=== PATIENT | female | born 1940 | race Caucasian/White ===

== ENCOUNTER → 2016-09-26 | Outpatient (CLI) | payer OTHER ==
[~2016-09-26] MED LIST: ANT25 PO; ASCO500T16 PO; ASPI81TA21 PO; ATOR-14 PO; CHOL100010 PO; CLTP PO; DICL-201 PO; FURO-85 PO; GLUC10007 PO; LEVO125T72 PO; LISI-729 PO; MULT-506 PO; NITR100C4 PO; OXYB10TA PO; ROPI1TAB PO; SUCR1TAB29 PO; ZNTT/150 PO
[2016-09-26 13:27] LABS: BASO % 0.3 %; BASO ABS # 0.02 K/uL (0-0.2); COMPLETE YES; EOS % 1.3 %; HEMATOCRIT 46.2 % (37-47); IG% 0.1 %; LYMPH % 27.1 %; LYMPH ABS # 1.84 K/uL (1.2-3.4); MEAN CELL VOLUME 92.4 fL (80-100); MEAN CORPUSCULAR HEMOGLOBIN 31.2 pg (25-34); MEAN CORPUSCULAR HGB CONC 33.8 g/dl (32-36); MEAN PLATELET VOLUME 10.8 fL (7.4-10.4); MONO % 6.3 %; NEUT % 64.9 %; PLATELET COUNT 168 K/uL (130-400); WHITE BLOOD COUNT 6.79 K/uL (4.8-10.8)
== END | disposition home or self-care (01) ==
LOC: C.LABPBG 10:18
PROVIDERS: ATTEND Neuromusculoskeletal Medicine & OMM
DX: H10.9 Unspecified conjunctivitis (principal)

== ENCOUNTER → 2016-10-08 | Outpatient (CLI) | payer OTHER ==
[2016-10-08 13:13] LABS: CHOLESTEROL/HDL RATIO 2.9; THYROID STIMULATING HORMONE 1.12 uIu/ml (0.300-4.500)
== END | disposition home or self-care (01) ==
LOC: C.LABPBG 09:22
PROVIDERS: ATTEND Family Medicine
DX: E78.5 Hyperlipidemia, unspecified (principal); E03.9 Hypothyroidism, unspecified; B37.2 Candidiasis of skin and nail

== ENCOUNTER → 2017-03-27 | Outpatient (CLI) | payer OTHER ==
[2017-03-27 12:28] LABS: ALT/SGPT 24 U/L (12-78); BLOOD UREA NITROGEN 18 mg/dl (7-18); BUN/CREATININE RATIO 21.5 (10-20); CALCIUM 8.6 mg/dl (8.5-10.1); CARBON DIOXIDE 29 mmol/L (21-32); CHLORIDE 109 mmol/L (98-107); CREATININE 0.83 mg/dl (0.60-1.20); GLUCOSE 90 mg/dl (70-99); POTASSIUM 4.2 mmol/L (3.5-5.1); SODIUM 143 mmol/L (136-145)
[2017-03-27 12:38] LABS: CHOLESTEROL 143 mg/dl (0-200); HDL CHOLESTEROL 48 mg/dl; LDL CHOLESTEROL CALCULATED 76 mg/dl; TRIGLYCERIDES 93 mg/dl (0-150); VERY LOW DENSITY LIPOPROT CALC 19 mg/dl
== END | disposition home or self-care (01) ==
LOC: C.LABPBG 08:11
PROVIDERS: ATTEND Family Medicine
DX: I10 Essential (primary) hypertension (principal); E03.9 Hypothyroidism, unspecified; E78.5 Hyperlipidemia, unspecified

== ENCOUNTER → 2017-10-13 | Outpatient (CLI) | payer OTHER ==
[~2017-10-13] MED LIST changes: +ASPI-319 PO; -ASPI81TA21 PO; +RANI150T85 PO; -ZNTT/150 PO
[2017-10-13 13:34] LABS: ALT/SGPT 27 U/L (12-78); BLOOD UREA NITROGEN 14 mg/dl (7-18); CARBON DIOXIDE 28 mmol/L (21-32); CHOLESTEROL 138 mg/dl (0-200); GLUCOSE 92 mg/dl (70-99); POTASSIUM 4.2 mmol/L (3.5-5.1); SODIUM 139 mmol/L (136-145)
[2017-10-13 13:45] LABS: LDL CHOLESTEROL CALCULATED 68 mg/dl
[2017-10-13 13:55] LABS: HEMOGLOBIN A1C 5.2 % (4.5-5.6)
== END | disposition home or self-care (01) ==
LOC: C.LABPBG 09:57
PROVIDERS: ATTEND Family Medicine
DX: I10 Essential (primary) hypertension (principal); E03.9 Hypothyroidism, unspecified; E78.5 Hyperlipidemia, unspecified

== ENCOUNTER 2019-12-04 17:38 | Inpatient (IN) ==
[2019-12-04] MEDS ORDERED: KETOROLAC TROMETHAMINE 15 MG/ML VIAL IV STA (17:50)
[2019-12-04] MEDS ORDERED: ONDANSETRON INJ 2 MG/ML 2 ML VIAL IV STA (17:50)
[2019-12-04] MEDS ORDERED: SODIUM CHLORIDE 0.9% 1000ML 500 ML IV ONE (18:00)
--- NOTE | 2019-12-04 18:04 | Emergency Department Note ---
History of Present Illness General Chief Complaint: Abdominal Pain Stated Complaint: RLQ PAIN, FEVER/CHILLS Time Seen by Provider: 12/04/19 17:48 History of Present Illness Provider Complaint: abdominal pain Onset (ago): 2 day(s) Pain Consistency: constant Location: RLQ Radiation: none Severity: moderate Maximum Pain Intensity: 1 Current Pain Intensity: 1 Quality: + stabbing and + sharp Relieved By: + nothing Context: no possible food poisoning and no recent antibiotic use Associated Symptoms: + fever (T-max 100.3.), + chills and + dysuria (And polyuria); no hematochezia, no melena and no hematuria Home Medications Home Medications Medication Instructions Recorded Confirmed Type Caltrate 600 plus D 1 tab PO 1200 07/10/18 12/04/19 History cholecalciferol (vitamin D3) 50 2,000 units PO QAM tab 03/22/19 12/04/19 History mcg (2,000 unit) tablet docusate sodium 100 mg tablet 100 mg PO PM tab 03/22/19 12/04/19 History magnesium oxide 500 mg capsule 750 mg PO PM cap 03/22/19 12/04/19 History multivitamin 1 tab PO QAM 03/22/19 12/04/19 History prednisolone acetate 1 % eye 1 drops OP QID ml 03/22/19 12/04/19 History drops,suspension ropinirole 1 mg tablet 1 mg PO QPM #90 tab 05/16/19 12/04/19 Rx atorvastatin [Lipitor] 10 mg PO PM 06/20/19 12/04/19 History montelukast 10 mg PO QAM 06/20/19 12/04/19 History fluconazole 150 mg tablet 150 mg PO Q3D #2 tab 07/25/19 12/04/19 Rx pantoprazole 40 mg tablet,delayed 40 mg PO QAM #90 tab 08/12/19 12/04/19 Rx release levothyroxine 125 mcg tablet 125 mcg PO QAM #90 tab 09/12/19 12/04/19 Rx lisinopril 5 mg tablet 5 mg PO DAILY #90 tab 11/25/19 12/04/19 Rx Rantidine Tabs 150 mg PO HS 12/04/19 12/04/19 History brimonidine [Alphagan P] 1 drp OPHTHALMIC (EYE) DIRECTED 12/04/19 12/04/19 History Allergies Allergy/AdvReac Type Severity Reaction Status Date / Time esomeprazole Allergy Intermediate ITCHY RASH Verified 12/04/19 18:23 dog dander Allergy Mild CONGESTION Verified 12/04/19 18:23 house dust Allergy Mild CONGESTION Verified 12/04/19 18:23 mold Allergy Mild CONGESTION Verified 12/04/19 18:23 mollusks Allergy Mild CONGESTION Verified 12/04/19 18:23 Past Med/Surg History Medical History Acute anterior uveitis of both eyes GETS OCCASIONALLY GERD (gastroesophageal reflux disease) Hiatal hernia Hyperlipidemia Hypertension Hypothyroidism Kidney stones Osteoarthritis Surgical History Brow ptosis (Inactive 06/28/19) s/p bilateral temporal brow lift History of colonoscopy History of cystoscopy History of hysterectomy History of thyroidectomy, total History of tonsillectomy Hx of cholecystectomy (Resolved) Family History Mother Hypertension Myocardial infarction Unknown Colorectal cancer Other No pertinent family history Denies family history of Ovarian cancer Prostate cancer Breast cancer Social History Preferred Language: Peruvian Communication Ability: Effective Visual Impairment: No Limitations Hearing Ability: Use of Hearing Aid Commissioned Security Officer Required: No Beliefs That Will Affect Care: None Current Living Situation: Family current occupational status: retired Feels Safe at Home: Yes Smoking Status: Never smoker Second Hand Exposure: No ; Hx Alcohol Use: Yes Alcohol type: wine Hx Substance Use: No Dental Care, Regularly: No Physical Activity Frequency: Does not Exercise Review of Systems A total of 10 systems reviewed and were otherwise negative Physical Exam Vital Signs: Vital Signs - 24 hr 12/04/19 17:42 12/04/19 19:12 12/04/19 20:53 Temperature 37.2 C Temperature Source Oral Pulse Rate 95 H Pulse Rate [Left F prema] 86 82 Pulse Rhythm Regular Pulse Rhythm [Left Finger] Regular Pulse Strength Normal Pulse Strength [Le ft Finger] Normal Respiratory Rate 16 18 18 Respiratory Effort / Characteristics Non-Labored Non-Labored Sponta neous Respiratory Depth Normal Normal Respiratory Patter n Regular Blood Pressure 157/79 H Blood Pressure [Ri ght Arm] 189/68 H 204/106 H Blood Pressure Neema n 105 Blood Pressure Neema n [Right Arm] 108 138 Blood Pressure Pos ition Sitting Blood Pressure Pos ition [Right Arm] Sitting Lying Pulse Oximetry 96 97 98 Oxygen Delivery Me thod Room Air Room Air Room Air Sepsis Recent Feve r Within 48 Hours No Sepsis Action Take n by Nursing No Action Required Physical Exam: Physical Exam GENERAL: She is oriented to person, place, and time. She appears well-developed and well-nourished. She does not appear distressed. HENT: Exam performed. -Head: Normocephalic and atraumatic. -Right Ear: External ear normal. No mastoid tenderness. -Left Ear: External ear normal. No mastoid tenderness. -Mouth/Throat: The oropharynx is clear and moist. No trismus in the jaw. No dental abscesses or uvula swelling. No oropharyngeal exudate or tonsillar abscesses. EYES: Conjunctivae and EOM are normal. Pupils are equal, round, and reactive to light. Right eye exhibits no discharge. Left eye exhibits no discharge. No scleral icterus. NECK: Normal range of motion. Neck supple. No JVD present. No spinous process tenderness present. No carotid bruit present. No rigidity. No tracheal deviation and normal range of motion present. No Brudzinski's sign and no Kernig's sign noted. CV: Normal rate, regular rhythm, normal heart sounds and intact distal pulses. There is no peripheral edema. Palpable radial pulses bue. PULM/CHEST: Effort normal and breath sounds normal. No respiratory distress. No stridor. She has no wheezes. She has no rales. -Chest Wall: She exhibits no tenderness. ABD: The abdomen is soft. Bowel sounds are normal. She has no distension. No mass is present. Pain on palpation of the right lower quadrant. There is no r ebound, no guarding, no Kitchen's sign. Rovsig negative MUSC/SKEL: Normal range of motion. There is no peripheral edema, tenderness or deformity. LYMPH: No cervical adenopathy. NEURO: She is alert and oriented to person, place, and time. She has normal strength. No cranial nerve deficit or sensory deficit. Coordination and gait normal. GCS eye subscore is 4. GCS verbal subscore is 5. GCS motor subscore is 6. Cerebellar tests wnl. SKIN: Skin is warm and dry. She is not diaphoretic. PSYCH: She has a normal mood and affect. Behavior is normal. Judgment and thought content normal. Course Course 1800: The patient was evaluated in room B3. A complete history and physical exam was performed. 1954: Vital signs stable. Labs show leukocytosis of 16.87. CT shows appendicitis. Discussed case with general surgery Dr. Mckeon who states he will be down to evaluate the patient. Rocephin and Flagyl ordered for the patient. Daughter and patient are made of aware of the findings and were told to remain n.p.o. 2010: Dr. Mckeon called and asked if in-house COVID-19 swab can be done on the patient as he plans on taking the patient to the OR tonight. Administered Medications Discontinued Medications Bupivacaine HCl (Marcaine 0.5% Mpf) Confirm Administered Dose 30 ml .ROUTE .STBar Saint- MED ONE Stop: 12/04/19 21:13 Last Admin: 12/04/19 22:36 Dose: 15 ml Documented by: [id number] Sodium Chloride (Nss 1000ml) 500 mls @ 999 mls/hr IV .Q31M ONE Stop: 12/04/19 18:30 Last Infusion: 12/04/19 18:52 Dose: 0 mls/hr Documented by: [id number] Admin: 12/04/19 18:18 Dose: 999 mls/hr Documented by: [id number] Ceftriaxone Sodium (Rocephin) 1,000 mg in 50 mls @ 100 mls/hr IV NOW STA Stop: 12/04/19 19:57 Last Infusion: 12/04/19 20:52 Dose: 0 mls/hr Documented by: [id number] Admin: 12/04/19 19:57 Dose: 100 mls/hr Documented by: [id number] Metronidazole (Flagyl) 500 mg in 100 mls @ 100 mls/hr IV NOW STA Stop: 12/04/19 20:27 Last Infusion: 12/04/19 20:52 Dose: 0 mls/hr Documented by: [id number] Admin: 12/04/19 19:57 Dose: 100 mls/hr Documented by: [id number] Ioversol (Optiray 320 125ml) 93 ml IV ONCE PRN PRN Reason: Interaction Checking Stop: 12/08/19 18:58 Last Admin: 12/04/19 19:00 Dose: 93 ml Documented by: [id number] Ketorolac Tromethamine (Toradol) 15 mg IV NOW STA Stop: 12/04/19 17:51 Last Admin: 12/04/19 20:56 Dose: Not Given Documented by: [id number] Ondansetron HCl (Zofran) 4 mg IV NOW STA Stop: 12/04/19 17:51 Last Admin: 12/04/19 20:56 Dose: Not Given Documented by: [id number] Ondansetron HCl (Zofran) 4 mg IV ONCE PRN PRN Reason: PACU Use Only-Nausea/Vomiting Stop: 12/05/19 05:22 Last Admin: 12/04/19 23:19 Dose: 4 mg Documented by: [id number] Medical Decision Making Laboratory Data Result diagrams: 12/04/19 18:10 12/04/19 18:10 Lab Results 12/04/19 12/04/19 12/04/19 Range/Units 18:10 18:10 18:10 WBC 16.87 H (4.8-10.8) K/uL RBC 4.90 (4.2-5.4) M/uL Hgb 15.8 (12.0-16.0) g/dL Hct 45.8 (37-47) % MCV 93.5 (80-100) fL MCH 32.2 (25-34) pg MCHC 34.5 (32-36) g/dL RDW Std Deviation 45.5 (36.4-46.3) fL RDW Coeff of Fabienne 13.2 (11.5-14.5) % Plt Count 194 (130-400) K/uL MPV 10.0 (7.4-10.4) fL Immature Gran % (Auto) 0.2 % Neut % (Auto) 82.5 % Lymph % (Auto) 10.5 % [place] % (Auto) 6.6 % Eos % (Auto) 0.1 % Baso % (Auto) 0.1 % Immature Gran # (Auto) 0.04 H (0.00-0.02) K/uL Neut # (Auto) 13.93 H (1.4-6.5) K/uL Lymph # (Auto) 1.77 (1.2-3.4) K/uL [place] # (Auto) 1.11 H (0.11-0.59) K/uL Eos # (Auto) 0.01 (0-0.5) K/uL Baso # (Auto) 0.01 (0-0.2) K/uL PT 10.3 (9.0-12.0) Seconds INR 1.0 (0.9-1.1) APTT 24.0 (21.0-31.0) Seconds PTT Ratio 0.9 Sodium 138 (136-145) mmol/L Potassium 4.0 (3.5-5.1) mmol/L Chloride 106 (98-107) mmol/L Carbon Dioxide 27 (21-32) mmol/L Anion Gap 5.0 (3-11) BUN 14 (7-18) mg/dl Creatinine 0.80 (0.6-1.2) mg/dl Est Cr Clr Drug Dosing 66.8 ml/min Est GFR ( Amer) 80.1 Est GFR (Non-Af Amer) 69.1 BUN/Creatinine Ratio 17.6 (10-20) Glucose 108 H (70-99) mg/dl Lactate (0.4-2.0) mmol/L Calcium 9.0 (8.5-10.1) mg/dl Total Bilirubin 0.9 (0.2-1) mg/dl Direct Bilirubin 0.2 (0-0.2) mg/dl AST 19 (15-37) U/L ALT 32 (12-78) U/L Alkaline Phosphatase 93 (45-117) U/L Total Protein 7.6 (6.4-8.2) gm/dl Albumin 4.2 (3.4-5.0) gm/dl Lipase 109 (73-393) U/L Urine Color Urine Appearance (Clear) Urine pH (4.5-7.5) Ur Specific [place] (1.000-1.030) Urine Protein (Negative) Urine Glucose (UA) (Negative) Urine Ketones (Negative) Urine Blood (Negative) Urine Nitrite (Negative) Urine Bilirubin (Negative) Urine Urobilinogen (Negative) Ur Leukocyte Esterase (Negative) Urine WBC (Auto) (0-5) /hpf Urine RBC (Auto) (0-4) /hpf U Hyaline Cast (Auto) (0-5) /lpf U Epithel Cells (Auto) (0-5) /lpf Urine Bacteria (Auto) (Negative) COVID-19 PCR (Negative) SARS-CoV-2 RNA (RT-PCR) 12/04/19 12/04/19 12/04/19 Range/Units 18:10 18:10 20:15 WBC (4.8-10.8) K/uL RBC (4.2-5.4) M/uL Hgb (12.0-16.0) g/dL Hct (37-47) % MCV (80-100) fL MCH (25-34) pg MCHC (32-36) g/dL RDW Std Deviation (36.4-46.3) fL RDW Coeff of Fabienne (11.5-14.5) % Plt Count (130-400) K/uL MPV (7.4-10.4) fL Immature Gran % (Auto) % Neut % (Auto) % Lymph % (Auto) % [place] % (Auto) % Eos % (Auto) % Baso % (Auto) % Immature Gran # (Auto) (0.00-0.02) K/uL Neut # (Auto) (1.4-6.5) K/uL Lymph # (Auto) (1.2-3.4) K/uL [place] # (Auto) (0.11-0.59) K/uL Eos # (Auto) (0-0.5) K/uL Baso # (Auto) (0-0.2) K/uL PT (9.0-12.0) Seconds INR (0.9-1.1) APTT (21.0-31.0) Seconds PTT Ratio Sodium (136-145) mmol/L Potassium (3.5-5.1) mmol/L Chloride (98-107) mmol/L Carbon Dioxide (21-32) mmol/L Anion Gap (3-11) BUN (7-18) mg/dl Creatinine (0.6-1.2) mg/dl Est Cr Clr Drug Dosing ml/min Est GFR ( Amer) Est GFR (Non-Af Amer) BUN/Creatinine Ratio (10-20) Glucose (70-99) mg/dl Lactate 1.1 (0.4-2.0) mmol/L Calcium (8.5-10.1) mg/dl Total Bilirubin (0.2-1) mg/dl Direct Bilirubin (0-0.2) mg/dl AST (15-37) U/L ALT (12-78) U/L Alkaline Phosphatase (45-117) U/L Total Protein (6.4-8.2) gm/dl Albumin (3.4-5.0) gm/dl Lipase (73-393) U/L Urine Color Yellow Urine Appearance Clear (Clear) Urine pH 8.0 H (4.5-7.5) Ur Specific [place] 1.013 (1.000-1.030) Urine Protein Negative (Negative) Urine Glucose (UA) Negative (Negative) Urine Ketones Trace H (Negative) Urine Blood Negative (Negative) Urine Nitrite Negative (Negative) Urine Bilirubin Negative (Negative) Urine Urobilinogen Negative (Negative) Ur Leukocyte Esterase 2+ H (Negative) Urine WBC (Auto) 10-30 H (0-5) /hpf Urine RBC (Auto) 0-4 (0-4) /hpf U Hyaline Cast (Auto) 1-5 (0-5) /lpf U Epithel Cells (Auto) >30 H (0-5) /lpf Urine Bacteria (Auto) 1+ H (Negative) COVID-19 PCR (Negative) SARS-CoV-2 RNA (RT-PCR) Cancelled 12/04/19 Range/Units 20:15 WBC (4.8-10.8) K/uL RBC (4.2-5.4) M/uL Hgb (12.0-16.0) g/dL Hct (37-47) % MCV (80-100) fL MCH (25-34) pg MCHC (32-36) g/dL RDW Std Deviation (36.4-46.3) fL RDW Coeff of Fabienne (11.5-14.5) % Plt Count (130-400) K/uL MPV (7.4-10.4) fL Immature Gran % (Auto) % Neut % (Auto) % Lymph % (Auto) % [place] % (Auto) % Eos % (Auto) % Baso % (Auto) % Immature Gran # (Auto) (0.00-0.02) K/uL Neut # (Auto) (1.4-6.5) K/uL Lymph # (Auto) (1.2-3.4) K/uL [place] # (Auto) (0.11-0.59) K/uL Eos # (Auto) (0-0.5) K/uL Baso # (Auto) (0-0.2) K/uL PT (9.0-12.0) Seconds INR (0.9-1.1) APTT (21.0-31.0) Seconds PTT Ratio Sodium (136-145) mmol/L Potassium (3.5-5.1) mmol/L Chloride (98-107) mmol/L Carbon Dioxide (21-32) mmol/L Anion Gap (3-11) BUN (7-18) mg/dl Creatinine (0.6-1.2) mg/dl Est Cr Clr Drug Dosing ml/min Est GFR ( Amer) Est GFR (Non-Af Amer) BUN/Creatinine Ratio (10-20) Glucose (70-99) mg/dl Lactate (0.4-2.0) mmol/L Calcium (8.5-10.1) mg/dl Total Bilirubin (0.2-1) mg/dl Direct Bilirubin (0-0.2) mg/dl AST (15-37) U/L ALT (12-78) U/L Alkaline Phosphatase (45-117) U/L Total Protein (6.4-8.2) gm/dl Albumin (3.4-5.0) gm/dl Lipase (73-393) U/L Urine Color Urine Appearance (Clear) Urine pH (4.5-7.5) Ur Specific [place] (1.000-1.030) Urine Protein (Negative) Urine Glucose (UA) (Negative) Urine Ketones (Negative) Urine Blood (Negative) Urine Nitrite (Negative) Urine Bilirubin (Negative) Urine Urobilinogen (Negative) Ur Leukocyte Esterase (Negative) Urine WBC (Auto) (0-5) /hpf Urine RBC (Auto) (0-4) /hpf U Hyaline Cast (Auto) (0-5) /lpf U Epithel Cells (Auto) (0-5) /lpf Urine Bacteria (Auto) (Negative) COVID-19 PCR NEGATIVE (Negative) SARS-CoV-2 RNA (RT-PCR) MDM Narrative 1800: The patient was evaluated in room B3. A complete history and physical exam was performed. 1955: Vital signs stable. Labs show leukocytosis of 16.87. CT shows appendicitis. Discussed case with general surgery Dr. Mckeon who states he will be down to evaluate the patient. Rocephin and Flagyl ordered for the patient. Daughter and patient are made of aware of the findings and were told to remain n.p.o. 2010: Dr. Mckeon called and asked if in-house COVID-19 swab can be done on the patient as he plans on taking the patient to the OR tonight. Impression & Plan Acute appendicitis Discharge Plan Visit Data *Final* Discharge Date/Time: 12/04/19 21:32 Chief Complaint: Abdominal Pain Stated Complaint: RLQ PAIN, FEVER/CHILLS ED Provider: Rajat Mckeon Discharge Problem: Acute appendicitis Patient Disposition: Admitted As Inpatient Discharge Instructions Interventions: ED Discharge Assessment Last Done: 12/04/19 21:32
[2019-12-04 18:21] LABS: Basophils # (auto) 0.01 K/uL (0-0.2); Basophils % (auto) 0.1 %; Eosinophils # (auto) 0.01 K/uL (0-0.5); Eosinophils % (auto) 0.1 %; Hematocrit (blood only) 45.8 % (37-47); Hemoglobin 15.8 g/dL (12.0-16.0); Immature Granulocytes # (auto) 0.04 K/uL (0.00-0.02); Immature Granulocytes % (auto) 0.2 %; Lymphocytes # (auto) 1.77 K/uL (1.2-3.4); Lymphocytes % (auto) 10.5 %; Mean Corpuscular Hemoglobin 32.2 pg (25-34); Mean Corpuscular Hgb Conc 34.5 g/dL (32-36); Mean Corpuscular Volume 93.5 fL (80-100); Monocytes # (auto) 1.11 K/uL (0.11-0.59); Monocytes % (auto) 6.6 %; Neutrophils # (auto) 13.93 K/uL (1.4-6.5); Neutrophils % (auto) 82.5 %; Platelet Count 194 K/uL (130-400); RDW Coefficient of Variation 13.2 % (11.5-14.5); RDW Standard Deviation 45.5 fL (36.4-46.3); White Blood Count 16.87 K/uL (4.8-10.8)
[2019-12-04 18:36] LABS: Appearance Urine Clear (Clear); Bacteria Urine Automated 1+ (Negative); Bilirubin Urine Negative (Negative); Blood Urine Negative (Negative); Color Urine Yellow; Epithelial Cell Urine Auto >30 /lpf (0-5); Glucose Urine UA Negative (Negative); Ketones Urine Trace (Negative); Leukocyte Esterase Urine 2+ (Negative); Nitrite Urine Negative (Negative); Protein Urine Negative (Negative); RBC Urine Automated 0-4 /hpf (0-4); Specific Gravity Urine 1.013 (1.000-1.030); Urobilinogen Urine Negative (Negative)
[2019-12-04 18:38] LABS: Albumin Level 4.2 gm/dl (3.4-5.0); BUN Creatinine Ratio 17.6 (10-20); Creatinine Clr Calc Pharmacy 66.8 ml/min; Est GFR (African American) 80.1; Est GFR (Non-African American) 69.1; Partial Thromboplastin Ratio 0.9; Prothrombin Time 10.3 Seconds (9.0-12.0)
[2019-12-04 18:41] LABS: Bilirubin Direct 0.2 mg/dl (0-0.2); Bilirubin,Total 0.9 mg/dl (0.2-1); Total Protein 7.6 gm/dl (6.4-8.2)
[2019-12-04] MEDS ORDERED: OPTIRAY 320 125ml IV PRN (18:59)
--- NOTE | 2019-12-04 19:24 | CT Scan Report ---
ABDOMEN AND PELVIS CT WITH IV CONTRAST CT DOSE: 1111.22 mGy.cm HISTORY: Acute right lower quadrant abdominal pain rlq pain ro appy TECHNIQUE: Multiaxial CT images of the abdomen and pelvis were performed following the IV administrat ion of 93 cc of Optiray 320, A dose lowering technique was utilized adhering to the principles of [place]. COMPARISON STUDY: CT abdomen and pelvis 10/30/2014. FINDINGS: Mild emphysema. No pneumatosis or pneumoperitoneum. Imaged inferior cardiac chambers are mildly enlar ged. Spleen, pancreas and adrenal glands are unremarkable. Cholecystectomy. Hepatic steatosis. Patenc y of the hepatic and portal veins. Kidneys are unremarkable. There are a few scattered subcentimeter bilateral hypodensities which are too small to characterize however statistically favors cysts. No ob structive uropathy. Mild nonspecific urinary bladder wall thickening which appears somewhat nodular a long the anterior serosal margin. Hysterectomy. No adnexal mass lesions. Extensive calcified plaque o f the abdominal aorta. No aneurysm. No adenopathy. No bowel obstruction. Colonic diverticulosis. The appendix is dilated and fluid-filled, 1.3 cm contai rc 2 radiodense foci measuring up to 9 mm suggestive of appendicoliths. Fluid is noted within the a ppendiceal lumen with a focus of air, possibly reflective of necrosis. Mucosal hyperemia with moderat e periappendiceal stranding. No evidence of fracture or drainable fluid collection. Soft tissues are unremarkable. Bones appear intact. IMPRESSION: 1. Moderate acute appendicitis with appendicolith. No evidence of perforation or drainable fluid cristiana ection. 2. No bowel obstruction. 3. Additional findings as above. ACT 112: Negative or not required by law. The above report was generated using voice recognition software. It may contain grammatical, syntax o r spelling errors. Electronically signed by: Flynn Cadena M.D. 12/04/2019 7:23 PM
[2019-12-04] MEDS ORDERED: cefTRIAXone SODIUM 1,000 MG/50 ML BAG IV STA (19:28)
[2019-12-04] MEDS ORDERED: metroNIDAZOLE 500 MG/100 ML BAG IV STA (19:28)
--- NOTE | 2019-12-04 20:37 | History & Physical Report ---
Date of Service December 04, 2019 Assessment & Plan (1) Acute appendicitis: -will plan on appendectomy tonight -keep npo -hydrate with IVF -administer antibiotics--she has already received rocephin and flagyl -pain meds will be provided -plan was discussed at bedside with pt. and her daughter by myself and Dr. Mike Mckeon-patient with acute abdominal pain and evidence on CAT scan of acute appendicitis with an appendicolith For laparoscopic appendectomy possible open appendectomy she also understands she may have a drain History of Present Illness Primary Care Provider: Akila Monique MD 79 year old female was in her usual state of health until she began experiencing RLQ abdominal pain about 24 hours ago. This occurred while she was gardening so she though she pulled a muscle. The pain initially improved without intervention, but over the ensuing 12-24 hours the pain recurred. She noted the pain is worse with movement and was worse in the car ride to the hospital. She has had fevers and chills as well as loss of apatite, but no N/V. In the ED Ct scan of the abdomen showed findings concerning for acute appendicitis. Her WBC was 16.8 and she was afebrile. At the time of my exam she was in no distress. Allergies Allergy/AdvReac Type Severity Reaction Status Date / Time esomeprazole Allergy Intermediate ITCHY RASH Verified 12/04/19 18:23 dog dander Allergy Mild CONGESTION Verified 12/04/19 18:23 house dust Allergy Mild CONGESTION Verified 12/04/19 18:23 mold Allergy Mild CONGESTION Verified 12/04/19 18:23 mollusks Allergy Mild CONGESTION Verified 12/04/19 18:23 Home Medications Home Medications Medication Instructions Recorded Confirmed Type Caltrate 600 plus D 1 tab PO 1200 07/10/18 12/04/19 History cholecalciferol (vitamin D3) 50 2,000 units PO QAM tab 03/22/19 12/04/19 History mcg (2,000 unit) tablet docusate sodium 100 mg tablet 100 mg PO PM tab 03/22/19 12/04/19 History magnesium oxide 500 mg capsule 750 mg PO PM cap 03/22/19 12/04/19 History multivitamin 1 tab PO QAM 03/22/19 12/04/19 History prednisolone acetate 1 % eye 1 drops OP QID ml 03/22/19 12/04/19 History drops,suspension ropinirole 1 mg tablet 1 mg PO QPM #90 tab 05/16/19 12/04/19 Rx atorvastatin [Lipitor] 10 mg PO PM 06/20/19 12/04/19 History montelukast 10 mg PO QAM 06/20/19 12/04/19 History fluconazole 150 mg tablet 150 mg PO Q3D #2 tab 07/25/19 12/04/19 Rx pantoprazole 40 mg tablet,delayed 40 mg PO QAM #90 tab 08/12/19 12/04/19 Rx release levothyroxine 125 mcg tablet 125 mcg PO QAM #90 tab 09/12/19 12/04/19 Rx lisinopril 5 mg tablet 5 mg PO DAILY #90 tab 11/25/19 12/04/19 Rx Rantidine Tabs 150 mg PO HS 12/04/19 12/04/19 History brimonidine [Alphagan P] 1 drp OPHTHALMIC (EYE) DIRECTED 12/04/19 12/04/19 History Past Med/Surg History Medical History Acute anterior uveitis of both eyes GETS OCCASIONALLY GERD (gastroesophageal reflux disease) Hiatal hernia Hyperlipidemia Hypertension Hypothyroidism Kidney stones Osteoarthritis Surgical History Brow ptosis (Inactive 06/28/19) s/p bilateral temporal brow lift History of colonoscopy History of cystoscopy History of hysterectomy History of thyroidectomy, total History of tonsillectomy Hx of cholecystectomy (Resolved) Family History Mother Hypertension Myocardial infarction Unknown Colorectal cancer Other No pertinent family history Denies family history of Ovarian cancer Prostate cancer Breast cancer Social History Preferred Language: Mohawk Communication Ability: Effective Visual Impairment: No Limitations Hearing Ability: Use of Hearing Aid Healthcare Management Consultant Required: No Beliefs That Will Affect Care: None Current Living Situation: Family current occupational status: retired Feels Safe at Home: Yes Smoking Status: Never smoker Second Hand Exposure: No ; Hx Alcohol Use: Yes Alcohol type: wine Hx Substance Use: No Dental Care, Regularly: No Physical Activity Frequency: Does not Exercise Review of Systems Constitutional: + fever, + chills and + sweats Eyes: no diplopia Ear, Nose, Mouth, Throat: no ear pain Respiratory: no cough and no dyspnea Cardiovascular: no chest pain Gastrointestinal: + abdominal pain; no nausea and no vomiting Genitourinary: no dysuria Musculoskeletal: no back pain Integumentary: no rash Neurologic: no localized weakness Physical Exam Constitutional: well developed and well nourished; no acute distress Eyes: no conjunctival abnormality ENMT: Ears: no hearing impairment Neck: trachea midline Respiratory: normal respiratory effort, lungs clear to auscultation Cardiovascular: Rate/Rhythm: regular rate and regular rhythm Vessels: radial pulses present Gastrointestinal (Abdomen): soft and non-distended. Pain with palpation in RUL. Musculoskeletal: no calf pain Skin: no rashes, warm and dry Neurologic: moves all extremities Psychiatric: A+Ox3, euthymic affect Results & Data Results & Data ([facility]) Vital Signs (Past 12 Hours) Vital Signs Temp Pulse Pulse Resp BP BP Pulse Ox 12/04/19 19:12 86 18 189/68 H 97 12/04/19 17:42 37.2 C 95 H 16 157/79 H 96 PG Care Time/CCT Total # of Minutes Spent Total Time Spent with Patient: Total time spent is greater than 50% in coordination of care (as documented) at patient's floor/unit and/or counseling patient: Coding Level of Care Code 10928 Initial Inpt Care Lvl 3 Diagnoses Acute appendicitis K35.80
[2019-12-04] MEDS ORDERED: BUPIVACAINE 0.5 % 5 MG/1 ML MPF 30ML VIAL ONE (21:12)
[2019-12-04] MEDS ORDERED: ONDANSETRON INJ 2 MG/ML 2 ML VIAL IV PRN (21:22)
[2019-12-04] MEDS ORDERED: ATROPINE SULFATE 0.1 MG/ML 10ML SYR IV PRN (21:22)
[2019-12-04] MEDS ORDERED: ePHEDrine sulfate 50 MG/ML AMP IV PRN (21:22)
[2019-12-04] MEDS ORDERED: PROMETHAZINE HCL 6.25 MG in SODIUM CHLORIDE 0.9% 50 ML IV PRN (21:22)
[2019-12-04] MEDS ORDERED: fentaNYL citrate 100 MCG/2 ML VIAL IV PRN (21:22)
[2019-12-04] MEDS ORDERED: fentaNYL citrate 100 MCG/2 ML VIAL ONE (21:25)
--- NOTE | 2019-12-04 21:34 | Anesthesiology Consultation ---
Date of Service December 04, 2019 Assessment & Plan (1) Encounter for pre-operative examination: Chart Review Chart Review: Acceptable Risk for Surgery and Patient NOT seen in Pre Admission Testing Consults Requested none ASA ASA3 Proposed Anesthesia Anesthesia Type: General Risk / Benefits Reviewed With: PT / POA / Parent / Guardian, Accepts Plan and In formed Consent Obtained History Surgery Operation Date: 12/04/19 21:30 Proposed Procedures p Laparoscopic Appendectomy - Terrance Mckeon MD, FACS Height/Weight Height: 5 ft 6 in Weight: 103 kg Allergies Allergy/AdvReac Type Severity Reaction Status Date / Time esomeprazole Allergy Intermediate ITCHY RASH Verified 12/04/19 18:23 dog dander Allergy Mild CONGESTION Verified 12/04/19 18:23 house dust Allergy Mild CONGESTION Verified 12/04/19 18:23 mold Allergy Mild CONGESTION Verified 12/04/19 18:23 mollusks Allergy Mild CONGESTION Verified 12/04/19 18:23 Medications Home Medications Medication Instructions Recorded Confirmed Last Taken Caltrate 600 plus D 1 tab PO 1200 07/10/18 12/04/19 12/04/19 cholecalciferol (vitamin D3) 50 2,000 units PO QAM tab 03/22/19 12/04/19 mcg (2,000 unit) tablet docusate sodium 100 mg tablet 100 mg PO PM tab 03/22/19 12/04/19 12/03/19 magnesium oxide 500 mg capsule 750 mg PO PM cap 03/22/19 12/04/19 12/03/19 multivitamin 1 tab PO QAM 03/22/19 12/04/19 12/04/19 prednisolone acetate 1 % eye 1 drops OP QID ml 03/22/19 12/04/19 12/04/19 drops,suspension ropinirole 1 mg tablet 1 mg PO QPM #90 tab 05/16/19 12/04/19 12/03/19 atorvastatin [Lipitor] 10 mg PO PM 06/20/19 12/04/19 12/03/19 montelukast 10 mg PO QAM 06/20/19 12/04/19 12/04/19 fluconazole 150 mg tablet 150 mg PO Q3D #2 tab 07/25/19 12/04/19 Unknown pantoprazole 40 mg tablet,delayed 40 mg PO QAM #90 tab 08/12/19 12/04/19 12/04/19 release levothyroxine 125 mcg tablet 125 mcg PO QAM #90 tab 09/12/19 12/04/19 12/04/19 lisinopril 5 mg tablet 5 mg PO DAILY #90 tab 11/25/19 12/04/19 12/04/19 Rantidine Tabs 150 mg PO HS 12/04/19 12/04/19 12/03/19 brimonidine [Alphagan P] 1 drp OPHTHALMIC (EYE) DIRECTED 12/04/19 12/04/19 0 12/04/19 Active Medications Generic Name Dose Route Start Last Admin Trade Name Freq PRN Reason Stop Dose Admin Ioversol 93 ml 12/04/19 18:59 12/04/19 19:00 Optiray 320 125ml IV 12/08/19 18:58 93 ml ONCE PRN Administration Interaction Checking NPO Date Last Intake of Fluids: 12/04/19 Time Last Intake of Fluids: 16:30 Date Last Intake of Solids: 12/04/19 Time Last Intake of Solids: 13:30 Past Medical History Medical History Acute anterior uveitis of both eyes GETS OCCASIONALLY GERD (gastroesophageal reflux disease) Hiatal hernia Hyperlipidemia Hypertension Hypothyroidism Kidney stones Osteoarthritis Exercise / Class Metabolic Activity II 4-5 Yardwork/Stairs/Walk up hill Past Family History Family History Mother Hypertension Myocardial infarction Unknown Colorectal cancer Other No pertinent family history Denies family history of Ovarian cancer Prostate cancer Breast cancer Past Surgical History Surgical History Brow ptosis (Inactive 06/28/19) s/p bilateral temporal brow lift History of colonoscopy History of cystoscopy History of hysterectomy History of thyroidectomy, total History of tonsillectomy Hx of cholecystectomy (Resolved) Past Anesthesia History No Hx of Anesthesia Complications and No Family Hx of Anesthesia Complications History of PONV No Hx of PONV and No Hx of Motion Sickness Social History Smoking Status: Never smoker Hx Alcohol Use: Yes Alcohol type: wine alcohol intake frequency: holidays/special occasions only Hx Substance Use: No substance use type: does not use Physical Exam Vital Signs Last Vital Signs Temp 37.2 C 12/04/19 17:42 Pulse 82 12/04/19 20:53 Resp 18 12/04/19 20:53 BP 204/106 H 12/04/19 20:53 Pulse Ox 98 12/04/19 20:53 Constitutional + obese ENMT Mouth: + edentulous Thyromental Distance: > or= 3.5 Finger Breadths Mallampati Class: II Neck normal visual inspection Respiratory normal respiratory effort Auscultation: lungs clear to auscultation bilaterally Cardiovascular Rate/Rhythm: regular rate and regular rhythm Psychiatric Orientation: alert Testing Laboratory Results 12/04/19 18:10 12/04/19 18:10 PT 10.3 Seconds (9.0-12.0) 12/04/19 18:10 INR 1.0 (0.9-1.1) 12/04/19 18:10 APTT 24.0 Seconds (21.0-31.0) 12/04/19 18:10 Urine Color Yellow 12/04/19 18:10 Urine Appearance Clear (Clear) 12/04/19 18:10 Urine pH 8.0 (4.5-7.5) H 12/04/19 18:10 Ur Specific [place] 1.013 (1.000-1.030) 12/04/19 18:10 Urine Protein Negative (Negative) 12/04/19 18:10 Urine Glucose (UA) Negative (Negative) 12/04/19 18:10 Urine Ketones Trace (Negative) H 12/04/19 18:10 Urine Nitrite Negative (Negative) 12/04/19 18:10 Ur Leukocyte Esterase 2+ (Negative) H 12/04/19 18:10 Urine WBC (Auto) 10-30 /hpf (0-5) H 12/04/19 18:10 Urine RBC (Auto) 0-4 /hpf (0-4) 12/04/19 18:10 U Hyaline Cast (Auto) 1-5 /lpf (0-5) 12/04/19 18:10 U Epithel Cells (Auto) >30 /lpf (0-5) H 12/04/19 18:10 Urine Bacteria (Auto) 1+ (Negative) H 12/04/19 18:10 Electrocardiogram Date: 07/10/18 Findings: + NSR @ +PACs Chest X-Ray Date: 12/04/19 Findings: + NAD
[2019-12-04] MEDS ORDERED: MoRPHine SULFATE PF 1 MG/ML 10 ML AMP/VIAL ONE (22:28)
[2019-12-04] MEDS ORDERED: LIDOCAINE HCL 2% 2 ML VIAL/AMP(20MG/ML) INFIL ONE (22:32)
[2019-12-04] MEDS ORDERED: GLYCOPYRROLATE 0.2 MG/ML VIAL ONE (22:32)
[2019-12-04] MEDS ORDERED: ROCURONIUM BROMIDE 10 MG/ML 5 ML VIAL IV ONE (22:32)
[2019-12-04] MEDS ORDERED: ONDANSETRON INJ 2 MG/ML 2 ML VIAL ONE (22:32)
[2019-12-04] MEDS ORDERED: NEOSTIGMINE METHYLSULFATE 5 MG/5 ML SYR ONE (22:32)
[2019-12-04] MEDS ORDERED: PROPOFOL IV EMULSION 10 MG/ML 20 ML VIAL IV ONE (22:32)
[2019-12-04] MEDS ORDERED: SUCCINYLCHOLINE CHLORIDE 20 MG/ML 10 ML VIAL IV ONE (22:32)
[2019-12-04] MEDS ORDERED: KETOROLAC 30 MG/ML VIAL ONE (22:32)
[2019-12-04] MEDS ORDERED: ACETAMINOPHEN 1,000 MG/100 ML VIAL IV ONE (22:37)
--- NOTE | 2019-12-04 22:37 | Post Operative Brief Note ---
PG Immediate Post Op with CF Date of Surgery December 04, 2019 Pre & Post Diagnosis Operation Date: 12/04/19 21:30 Pre-Op Diagnosis: Acute appendicitis. Post-Op Diagnosis: Acute appendicitis. , gangrenous I identified the patient and participated in the time-out.: Yes Procedure Operation Date: 12/04/19 21:30 Actual Procedures p Laparoscopic Appendectomy - Terrance Mckeon MD, FACS Surgeon Terrance Mckeon MD, FACS Digital Media Director Marcial Morales Estimated Blood Loss 10 Findings Consistent with Post-Op Diagnosis Specimens Specimen Description: A. Appendix. Drains Elizabeth Catheter and Frank-Stephens Drain (15 fr round)
--- NOTE | 2019-12-04 23:02 | Anesthesiology Progress Note ---
Date of Service December 04, 2019 Anesthesia Post Procedure Vital Signs Vital Signs: Temp Pulse Pulse Resp BP BP Pulse Ox 12/04/19 20:53 82 18 204/106 H 98 12/04/19 19:12 86 18 189/68 H 97 12/04/19 17:42 37.2 C 95 H 16 157/79 H 96 Pain Intensity Abdomen: Pain Intensity: 5 Transfer of Care Handoff Completed per policy Notes Mental Status: alert / awake / arousable Patient Amnestic to Procedure: Yes Nausea / Vomiting: adequately controlled Pain: adequately controlled Airway Patency, RR, SpO2: stable & adequate BP & HR: stable & adequate Hydration State: stable & adequate Anesthetic Complications: no major complications apparent
--- NOTE | 2019-12-04 23:47 | Operative Report (OR) ---
DATE OF OPERATION: 12/04/2019 NAME OF OPERATION: Laparoscopic appendectomy. PREOPERATIVE DIAGNOSIS: Acute appendicitis. POSTOPERATIVE DIAGNOSIS: Acute appendicitis with gangrenous appendicitis. STAFF SURGEON: Terrance Mckeon MD. READING SPECIALIST: GILBERTO Colvin ANESTHESIA: General. DESCRIPTION OF PROCEDURE: The patient was brought into the operating room and placed on the operating table in supine position. Elizabeth catheter, pneumatic stockings, and orogastric tube were placed. My assistant corporation counsel helped with prepping, draping, removal of the appendix, and closure of the wounds. A 0.5% plain Marcaine was used to anesthetize all skin and subcutaneous tissue. Incision was made above the umbilicus carrying dissection down to the fascia, placing a Veress needle producing pneumoperitoneum. A 5 mm port placed and then pneumoperitoneum produced. Under visualization, another 5 mm port was placed suprapubically. Then using a 5 mm camera, the 12 mm balloon cannula was placed in the supraumbilical area, then another 5 mm port placed in left lower quadrant. The patient's appendix was gangrenous. It was dissected away from the retroperitoneum. There was an exudate. The base of the appendix was dissected free and then transected using the Endo ALCIDES stapler. There was some murky fluid in the right lower quadrant. The mesoappendix was transected using the Endo ALCIDES stapler. The appendix was placed in an Endobag, then the Endobag removed through the umbilical site. The right lower quadrant was irrigated and aspirated and then a 15 round Frank-Stephens drain placed through the suprapubic 5 mm port site into the right lower quadrant and pelvis, secured using 3-0 nylon suture. At this point, all ports were removed. The fascia at the 12 mm site closed using interrupted 0 PDS suture. Skin reapproximated using 4-0 nylon suture. The patient was transferred to recovery room in stable condition. I attest to the content of the Intraoperative Record and any orders documented therein. Any exceptions are noted below. SHEA
[2019-12-05] MEDS ORDERED: PROMETHAZINE HCL 6.25 MG in SODIUM CHLORIDE 0.9% 50 ML IV PRN (00:36)
[2019-12-05] MEDS ORDERED: MoRPHine SULFATE 2 MG/ML CARP IV PRN ×2 (00:36)
[2019-12-05] MEDS ORDERED: HYDROCODONE/ACETAMOPHEN 5/325MG TAB PO PRN ×2 (00:36)
[2019-12-05] MEDS ORDERED: PIPERACILL/TAZOBAC CONSULT ACTIVE PRN (00:36)
[2019-12-05] MEDS ORDERED: ONDANSETRON INJ 2 MG/ML 2 ML VIAL IV PRN (00:36)
[2019-12-05] MEDS ORDERED: PIPERACILLIN/TAZOBACTAM 4.5 GM in DEXTROSE 5% 100 ML IV ONE (01:00)
--- NOTE | 2019-12-05 01:39 | Hospitalist Consultation ---
Date of Consultation December 05, 2019 Assessment & Plan (1) Acute appendicitis: 79 yo F PMHx HTN, GERD, HLD, hypothyroidism admitted for acute appendicitis. Hospitalist service consulted for HTN and medical management. Acute appendicitis s/p laparoscopic appendectomy: - Care per surgical team. - Continue IV piperacillin/tazobactam. - Continue to monitor CBC qAM. - Morphine prn pain, zofran prn nausea. - Diet tomorrow clear liquids. HTN: - while patient's BP was significantly elevated on arrival, post-op her BP is normotensive. - elevation was likely 2/2 pain and discomfort. - continue home lisinopril 5 mg daily. Hypothyroidism: - continue home levothyroxine 125 mcg daily. HLD: - continue home Lipitor 10 mg daily. GERD: - continue home pantoprazole. Dispo: Med/Surg with Telemetry. For IV Abx. FEN/GI: clear liquid diet starting at Breakfast DVT ppx: pt is immediately post-op. SCD thigh for now. (2) Benign essential hypertension: (3) Hypothyroidism: (4) Hyperlipidemia: (5) Acid reflux disease: Supervising Physician Co-Signing Physician Notes Attending addendum: I have physically seen this patient, have supervised the medical residents activities, and agree with the H&P unless as otherwise noted. Assessment and Plan: Acute appendicitis status post laparoscopic appendectomy- IV Zosyn, morphine and Zofran per primary team. Hypertension- Blood pressure now normotensive after surgery. On lisinopril 5 mg daily at home. Medications will be adjusted as needed this admission. Hyperlipidemia- Continue Lipitor 10 mg daily Hypothyroidism- Continue levothyroxine at 125 mcg daily GERD- Continue pantoprazole Remainder of orders notations noted We will follow along during hospital stay History of Present Illness Reason for Consultation: HTN, medical management Requesting Physician: Dr. Mckeon Attending Physician: Terrance Mckeon MD, FACS History of Present Illness 79 yo F PMHx HTN, GERD, hypothyroidism admitted to surgical service for appendicitis. Hospitalist service consulted for HTN and medication management. Today started having RLQ abdominal pain, nausea, subjective fevers and chills. Pain was crampy in nature, worse with car rides and with walking. Upon arrival to ER had leukocytosis to 16.87 with left shift, UA with LE and bacteria but no nitrites and was a dirty catch, CTAP showed appendicitis. Pt was hypertensive to 200/[address] Mckeon performed laparoscopic appendectomy this evening and found a gangrenous appendix with exudate and murky brown fluid in the abdominal cavity. Appendix was successfully removed and fluid drained. On my interview post-op feels that her abdominal pain and nausea have significantly improved, but she still feels very chilled despite several layers of blankets. Denies CP, SOB, dizziness, visual changes, headaches. Allergies Allergy/AdvReac Type Severity Reaction Status Date / Time esomeprazole Allergy Intermediate ITCHY RASH Verified 12/04/19 18:23 dog dander Allergy Mild CONGESTION Verified 12/04/19 18:23 house dust Allergy Mild CONGESTION Verified 12/04/19 18:23 mold Allergy Mild CONGESTION Verified 12/04/19 18:23 mollusks Allergy Mild CONGESTION Verified 12/04/19 18:23 Home Medications Home Medications Medication Instructions Recorded Confirmed Type Caltrate 600 plus D 1 tab PO 1200 07/10/18 12/04/19 History cholecalciferol (vitamin D3) 50 2,000 units PO QAM tab 03/22/19 12/04/19 History mcg (2,000 unit) tablet docusate sodium 100 mg tablet 100 mg PO PM tab 03/22/19 12/04/19 History magnesium oxide 500 mg capsule 750 mg PO PM cap 03/22/19 12/04/19 History multivitamin 1 tab PO QAM 03/22/19 12/04/19 History prednisolone acetate 1 % eye 1 drops OP QID ml 03/22/19 12/04/19 History drops,suspension ropinirole 1 mg tablet 1 mg PO QPM #90 tab 05/16/19 12/04/19 Rx atorvastatin [Lipitor] 10 mg PO PM 06/20/19 12/04/19 History montelukast 10 mg PO QAM 06/20/19 12/04/19 History fluconazole 150 mg tablet 150 mg PO Q3D #2 tab 07/25/19 12/04/19 Rx pantoprazole 40 mg tablet,delayed 40 mg PO QAM #90 tab 08/12/19 12/04/19 Rx release levothyroxine 125 mcg tablet 125 mcg PO QAM #90 tab 09/12/19 12/04/19 Rx lisinopril 5 mg tablet 5 mg PO DAILY #90 tab 11/25/19 12/04/19 Rx Rantidine Tabs 150 mg PO HS 12/04/19 12/04/19 History brimonidine [Alphagan P] 1 drp OPHTHALMIC (EYE) DIRECTED 12/04/19 12/04/19 History Patient History Medical History Acute anterior uveitis of both eyes GETS OCCASIONALLY GERD (gastroesophageal reflux disease) Hiatal hernia Hyperlipidemia Hypertension Hypothyroidism Kidney stones Osteoarthritis Surgical History Brow ptosis (Inactive 06/28/19) s/p bilateral temporal brow lift History of colonoscopy History of cystoscopy History of hysterectomy History of thyroidectomy, total History of tonsillectomy Hx of cholecystectomy (Resolved) Family History Mother Hypertension Myocardial infarction Unknown Colorectal cancer Other No pertinent family history Denies family history of Ovarian cancer Prostate cancer Breast cancer Social History Preferred Language: Mongolian Communication Ability: Effective Visual Impairment: No Limitations Hearing Ability: Use of Hearing Aid Hospital Staff Pharmacist Required: No Beliefs That Will Affect Care: None Current Living Situation: Spouse current occupational status: retired Feels Safe at Home: Yes Safety Concerns: Feels Safe At This Time Smoking Status: Never smoker Second Hand Exposure: No ; Hx Alcohol Use: No Hx Substance Use: No Dental Care, Regularly: No Physical Activity Frequency: Does not Exercise Review of Systems Constitutional: + chills (feeling very cold in the room despite warm blankets); no fever and no malaise Respiratory: no cough, no dyspnea and no wheezing Cardiovascular: no chest pain, no palpitations and no edema Gastrointestinal: + abdominal pain (minimal, at incision sites, significant improvement since surgery); no nausea (none since surgery), no vomiting, no constipation and no diarrhea/loose stools Genitourinary: no dysuria and no hematuria Physical Exam Constitutional: WD/WN, vitals as above Respiratory: normal respiratory effort, lungs clear to auscultation Cardiovascular: RRR, no murmur, no edema Gastrointestinal (Abdomen): Inspection/Auscultation: normal bowel sounds Percussion/Palpation: + abdomen tender (mild, diffuse) and abdomen soft incision sites clean, dry, intact Skin: no rashes, warm and dry Neurologic: normal speech. Psychiatric: A+Ox3, euthymic affect Results & Data Results & Data ([facility]) Vital Signs (Past 12 Hours) Vital Signs Temp Pulse Pulse Resp BP BP Pulse Ox 12/04/19 23:22 65 19 138/66 92 12/04/19 23:20 66 20 93 12/04/19 23:17 63 18 139/61 94 12/04/19 23:15 67 21 97 12/04/19 23:12 70 20 133/63 94 12/04/19 23:10 36.8 C 71 18 95 12/04/19 23:08 74 20 95 12/04/19 23:07 72 17 134/63 94 12/04/19 23:05 72 19 95 12/04/19 23:02 74 13 129/64 95 12/04/19 23:00 36.8 C 70 18 96 12/04/19 22:59 72 20 95 12/04/19 22:57 36.6 C 73 18 114/61 95 12/04/19 22:50 36.6 C 75 17 121/67 100 12/04/19 20:53 82 18 204/106 H 98 12/04/19 19:12 86 18 189/68 H 97 12/04/19 17:42 37.2 C 95 H 16 157/79 H 96 Resident Activity Tracking Resident Involvement: Resident Care Provided Care Provided: Adult Hospital Medicine
[2019-12-05] MEDS: SODIUM CHLORIDE 0.9% 1000ML 1,000 ML IV SCH ×2 (02:44→16:57)
--- NOTE | 2019-12-05 05:52 | Surgery Progress Note ---
Date of Service December 05, 2019 Assessment & Plan (1) S/P laparoscopic appendectomy: pt with gangrenous appendicitis cont IV atbx 2-3 days adv diet/ activity remove gallardo Results & Data Vital Signs (Past 12 Hours) Vital Signs Temp Pulse Pulse Resp BP BP Pulse Ox 12/05/19 04:21 37.2 C 70 16 115/69 92 12/05/19 02:54 37.2 C 91 H 16 94/60 L 91 12/04/19 23:22 65 19 138/66 92 12/04/19 23:20 66 20 93 12/04/19 23:17 63 18 139/61 94 12/04/19 23:15 67 21 97 12/04/19 23:12 70 20 133/63 94 12/04/19 23:10 36.8 C 71 18 95 12/04/19 23:08 74 20 95 12/04/19 23:07 72 17 134/63 94 12/04/19 23:05 72 19 95 12/04/19 23:02 74 13 129/64 95 12/04/19 23:00 36.8 C 70 18 96 12/04/19 22:59 72 20 95 12/04/19 22:57 36.6 C 73 18 114/61 95 12/04/19 22:50 36.6 C 75 17 121/67 100 12/04/19 20:53 82 18 204/106 H 98 12/04/19 19:12 86 18 189/68 H 97 PG Care Time/CCT Total # of Minutes Spent Total Time Spent with Patient: Total time spent is greater than 50% in coordination of care (as documented) at patient's floor/unit and/or counseling patient: Coding Level of Care Code None Diagnoses S/P laparoscopic appendectomy Z90.49
[2019-12-05 06:03] LABS: Basophils # (auto) 0.01 K/uL (0-0.2); Basophils % (auto) 0.1 %; Hematocrit (blood only) 44.6 % (37-47); Hemoglobin 14.9 g/dL (12.0-16.0); Immature Granulocytes # (auto) 0.06 K/uL (0.00-0.02); Immature Granulocytes % (auto) 0.4 %; Lymphocytes # (auto) 1.49 K/uL (1.2-3.4); Lymphocytes % (auto) 10.3 %; Mean Corpuscular Hemoglobin 31.2 pg (25-34); Mean Corpuscular Hgb Conc 33.4 g/dL (32-36); Mean Corpuscular Volume 93.5 fL (80-100); Mean Platelet Volume 10.1 fL (7.4-10.4); Monocytes % (auto) 5.5 %; Neutrophils # (auto) 12.11 K/uL (1.4-6.5); Neutrophils % (auto) 83.7 %; Platelet Count 129 K/uL (130-400); RDW Coefficient of Variation 13.3 % (11.5-14.5); Red Blood Count 4.77 M/uL (4.2-5.4); White Blood Count 14.47 K/uL (4.8-10.8)
[2019-12-05] MEDS: PIPERACILLIN/TAZOBACTAM 4.5 GM in DEXTROSE 5% 100 ML IV SCH ×3 (06:44→21:00)
[2019-12-05] MEDS: LEVOTHYROXINE SODIUM 125 MCG TABLET PO SCH (06:44)
[2019-12-05] MEDS: ACETAMINOPHEN 325 MG TAB PO PRN ×2 (06:50→23:40)
[2019-12-05 07:11] LABS: Albumin Level 3.3 gm/dl (3.4-5.0); BUN Creatinine Ratio 12.6 (10-20); Calcium 8.3 mg/dl (8.5-10.1); Creatinine Clr Calc Pharmacy 52.4 ml/min; Est GFR (African American) 59.7; Est GFR (Non-African American) 51.5
[2019-12-05 07:12] LABS: Albumin Globulin Ratio 1.1 (0.9-2); Bilirubin,Total 2.4 mg/dl (0.2-1); Globulin 3.1 gm/dl (2.5-4.0); Phosphorus 2.9 mg/dl (2.5-4.9); Total Protein 6.4 gm/dl (6.4-8.2)
--- NOTE | 2019-12-05 07:34 | XRay Report ---
XR chest 1V portable CLINICAL HISTORY: Preoperative evaluation. COMPARISON STUDY: Chest radiograph January 17, 2014. FINDINGS: Lung volumes are normal. Lungs are clear. There is no pneumothorax or pleural effusion. Car diac size is at the upper limits of normal. Mediastinal contours are normal. There is no evidence for pulmonary edema. IMPRESSION: No acute cardiopulmonary findings. ACT 112: Negative or not required by law. Electronically signed by: Guille Macedo M.D. 12/05/2019 7:32 AM
[2019-12-05 07:57] LABS: Potassium 4.2 mmol/L (3.5-5.1)
[2019-12-05] MEDS: HEPARIN SOD 5,000 UNIT/0.5 ML VIAL SQ SCH ×2 (08:35→20:52)
[2019-12-05] MEDS: prednisoLONE acetate 1% OP SUSP 5 ML BTL OP SCH ×4 (08:36→20:51)
[2019-12-05] MEDS: PANTOprazole 40 MG TAB PO SCH (08:37)
[2019-12-05] MEDS: lisinopriL 5 MG TAB PO SCH (08:41)
[2019-12-05] MEDS ORDERED: SODIUM CHLORIDE 0.9% 1000ML 500 ML IV ONE (10:15)
[2019-12-05] MEDS: CALCIUM 600MG + VIT D 400 IU TAB PO SCH (12:18)
--- NOTE | 2019-12-05 12:30 | Electrocardiogram Report ---
Test Reason : Blood Pressure : / mmHG Vent. Rate : 077 BPM Atrial Rate : 077 BPM P-R Int : 190 ms QRS Dur : 090 ms QT Int : 384 ms P-R-T Axes : 039 000 055 degrees QTc Int : 434 ms Normal sinus rhythm possible Anterior infarct (cited on or before 26-FEB-2013) Abnormal ECG When compared with ECG of 10-JUL-2018 09:53, Premature atrial complexes are no longer Present QT has lengthened Confirmed by Luis F Grigsby ([id number]) on 12/05/2019 12:29:59 PM Referred By: REFERRED SELF Confirmed By:Arcenio Grigsby
--- NOTE | 2019-12-05 19:46 | History & Physical Bridge Note ---
Date of Service December 05, 2019 History & Physical Bridge Note I have examined the patient, reviewed the History & Physical and in the interval since the performance of the History & Physical I have noted the following changes of clinical significance: I was contacted by the nursing staff as the patient was having low blood pressures in the 80s systolic. The nurse had first contacted the surgeon who recommended a 500 mL bolus of normal saline and then asked that the hospitalist see the patient. When I saw the patient, she was sitting in her chair and was having some lower abdominal pain, but denied any lightheadedness. She denied chest pain or shortness of breath, denied headache. She denied any vision changes. She denied any nausea. She denies any upper abdominal pain or any previous history of liver problems. I discussed the case with Dr. Mckeon on the phone. Gen: AAOx3, NAD HEENT: Anicteric sclerae, EOMI CV: RRR no mgr nl S1S2 Pulm: CTAB no wcr Abd: +BS soft mild tenderness palpation in the lower abdomen at surgical site without guarding or rebound, ISAAC drain with very minimal serosanguineous drainage, ND no masses or hernias Ext: No edema, 2+ DP pulses Skin: No rashes, warm/dry Neuro: Full strength throughout With elevated LFTs, WBC count elevated at 14 which is improved from previous, platelets mildly low at 129 79-year-old female with a history of HTN, hypothyroidism, GERD, RLS, here with acute gangrenous appendicitis with sepsis, now status post appendectomy emergently. With postoperative hypotension likely related to sepsis Also with elevated LFTs likely also secondary to hypotension/shock liver -Agree with bolus of 500 mL's of normal saline and continued maintenance normal saline at 80 mL's per hour -Surgery has advanced her diet to regular as tolerated which should also increase her solute intake -Blood pressures did improve after bolus -Follow LFTs in the morning-would expect LFTs to improve naturally as blood pressures and sepsis improve -Hold atorvastatin until LFTs return to normal -Continue IV antibiotics -Follow cultures -Will hold lisinopril for the morning
[2019-12-05] MEDS: ROPINIROLE HCL 1 MG TABLET PO SCH (20:51)
[2019-12-05] MEDS: MAGNESIUM OXIDE 400 MG TAB PO SCH (20:51)
[2019-12-05] MEDS ORDERED: ATORVASTATIN 10 MG TAB PO SCH (21:00)
--- NOTE | 2019-12-05 23:13 | Billing Data ---
Date of Service December 05, 2019 Coding Level of Care Code 02062 Inpt Consult Level 3
[2019-12-06] MEDS: SODIUM CHLORIDE 0.9% 1000ML 1,000 ML IV SCH ×2 (04:56→15:56)
[2019-12-06] MEDS: PIPERACILLIN/TAZOBACTAM 4.5 GM in DEXTROSE 5% 100 ML IV SCH ×3 (06:11→22:02)
[2019-12-06] MEDS: LEVOTHYROXINE SODIUM 125 MCG TABLET PO SCH (06:12)
[2019-12-06 07:00] LABS: Basophils # (auto) 0.01 K/uL (0-0.2); Basophils % (auto) 0.1 %; Eosinophils # (auto) 0.03 K/uL (0-0.5); Eosinophils % (auto) 0.2 %; Hematocrit (blood only) 40.1 % (37-47); Hemoglobin 13.2 g/dL (12.0-16.0); Immature Granulocytes # (auto) 0.01 K/uL (0.00-0.02); Immature Granulocytes % (auto) 0.1 %; Lymphocytes # (auto) 1.59 K/uL (1.2-3.4); Lymphocytes % (auto) 12.6 %; Mean Corpuscular Hemoglobin 31.5 pg (25-34); Mean Corpuscular Hgb Conc 32.9 g/dL (32-36); Mean Corpuscular Volume 95.7 fL (80-100); Monocytes # (auto) 0.63 K/uL (0.11-0.59); Neutrophils # (auto) 10.35 K/uL (1.4-6.5); Platelet Count 136 K/uL (130-400); RDW Coefficient of Variation 13.7 % (11.5-14.5); RDW Standard Deviation 47.8 fL (36.4-46.3); Red Blood Count 4.19 M/uL (4.2-5.4); White Blood Count 12.62 K/uL (4.8-10.8)
[2019-12-06 07:37] LABS: Albumin Level 2.7 gm/dl (3.4-5.0); Bilirubin Direct 0.4 mg/dl (0-0.2); Calcium 8.5 mg/dl (8.5-10.1); Creatinine Clr Calc Pharmacy 59.4 ml/min; Est GFR (African American) 69.5; Potassium 3.9 mmol/L (3.5-5.1)
[2019-12-06 07:43] LABS: Bilirubin,Total 1.2 mg/dl (0.2-1); Total Protein 5.7 gm/dl (6.4-8.2)
--- NOTE | 2019-12-06 07:53 | Surgery Progress Note ---
Date of Service December 06, 2019 Assessment & Plan (1) S/P laparoscopic appendectomy: Patient awake and alert she is in the bathroom Her urine output is good He does have some abdominal pain with cloudy serous drainage Her blood pressure has improved She probably needs 1-2 more days in the hospital and then home on oral antibiotics She should ambulate in the hallway Results & Data Vital Signs (Past 12 Hours) Vital Signs Temp Pulse Pulse Resp BP Pulse Ox 12/06/19 07:06 86 12/06/19 05:03 36.7 C 68 18 114/73 95 12/06/19 00:12 37.3 C 100 H 20 110/72 92 12/06/19 00:02 104 H PG Care Time/CCT Total # of Minutes Spent Total Time Spent with Patient: Total time spent is greater than 50% in coordination of care (as documented) at patient's floor/unit and/or counseling patient: Coding Level of Care Code None Diagnoses S/P laparoscopic appendectomy Z90.49
[2019-12-06] MEDS: HEPARIN SOD 5,000 UNIT/0.5 ML VIAL SQ SCH ×2 (08:29→20:37)
[2019-12-06] MEDS: PANTOprazole 40 MG TAB PO SCH (08:29)
[2019-12-06] MEDS: prednisoLONE acetate 1% OP SUSP 5 ML BTL OP SCH ×4 (08:29→20:36)
[2019-12-06] MEDS: CALCIUM 600MG + VIT D 400 IU TAB PO SCH (13:11)
--- NOTE | 2019-12-06 14:53 | Hospitalist Progress Note ---
Date of Service December 06, 2019 Assessment & Plan (1) Acute appendicitis: 79-year-old female with a history of HTN, hypothyroidism, GERD, RLS, here with acute gangrenous appendicitis with sepsis, now status post appendectomy emergently. Hospitalist service consulted for HTN and medical management. Acute appendicitis s/p laparoscopic appendectomy: With postoperative hypotension likely related to sepsis, POA. Blood pressures are now improved after normal saline bolus and maintenance normal saline fluids Also with elevated LFTs likely also secondary to hypotension/shock liver-now improving Leukocytosis continues to improve -DC IV fluids -Continue regular diet -Follow LFTs in the morning-would continue to expect LFTs to improve naturally as blood pressures and sepsis improve -Hold atorvastatin until LFTs return to normal -Continue IV Zosyn -ISAAC drain in place -Follow-up on pathology from surgery -Follow cultures -Continue to hold lisinopril for previous hypotension -Continue Tylenol, hydrocodone, and morphine as needed for pain, promethazine and Zofran as needed for nausea (2) Benign essential hypertension: BP was significantly elevated on arrival due to pain, then had hypotension postoperatively secondary to sepsis, POA Blood pressures improved with holding lisinopril and giving IV fluids -DC IV fluids -Continue to hold lisinopril (3) Hypothyroidism: -check TSH - continue home levothyroxine 125 mcg daily. (4) Hyperlipidemia: Holding statin as above for elevated LFTs (5) Acid reflux disease: Continue PPI daily (6) Restless legs syndrome: Continue ropinirole at bedtime (7) DVT prophylaxis: SCDs, heparin SQ Dispo: Stable for downgrade to medical/surgical floor Admission and Anticipated Discharge Date Admission Date: December 04, 2019 Subjective Patient feeling better today. Had some lower right-sided abdominal pain which is now improved. No bowel movement since hospitalization. No nausea or vomiting. Is tolerating a regular diet today. Is making plenty of urine. No further low blood pressures. Remains afebrile. I discussed her care with the general surgery attending. Telemetry with normal sinus rhythm with rates in the 90s to 100s, PVCs and PACs Review of Systems Review of Systems: All systems reviewed & are unremarkable except as noted in HPI & below Physical Exam Constitutional: WD/WN, vitals as above Eyes: PERRL, conjunctivae normal, anicteric sclerae ENMT: external ear and nose normal, oropharynx normal Neck: trachea midline, no thyromegaly Respiratory: normal respiratory effort, lungs clear to auscultation Cardiovascular: RRR, no murmur, no edema Chest (Breasts): Chest: normal inspection of chest Gastrointestinal (Abdomen): normal bowel sounds, soft, nontender, no hepatosplenomegaly Musculoskeletal: Extremities: extremities normal to inspection; no cyanosis and no clubbing Skin: no rashes, warm and dry Neurologic: moves all extremities and awake; no focal motor deficits Psychiatric: A+Ox3, euthymic affect Lymphatic: no lymphedema Results & Data Results & Data ([facility]) Vital Signs (Past 12 Hours) Vital Signs Temp Pulse Pulse Resp BP BP Pulse Ox 12/06/19 11:51 36.9 C 93 H 18 123/83 90 12/06/19 07:20 36.8 C 83 20 149/87 H 90 12/06/19 07:06 86 12/06/19 05:03 36.7 C 68 18 114/73 95 Laboratory Results 12/06/19 12/06/19 Range/Units 06:38 06:38 WBC 12.62 H (4.8-10.8) K/uL RBC 4.19 L (4.2-5.4) M/uL Hgb 13.2 (12.0-16.0) g/dL Hct 40.1 (37-47) % MCV 95.7 (80-100) fL MCH 31.5 (25-34) pg MCHC 32.9 (32-36) g/dL RDW Std Deviation 47.8 H (36.4-46.3) fL RDW Coeff of Fabienne 13.7 (11.5-14.5) % Plt Count 136 (130-400) K/uL MPV 10.0 (7.4-10.4) fL Immature Gran % (Auto) 0.1 % Neut % (Auto) 82.0 % Lymph % (Auto) 12.6 % [place] % (Auto) 5.0 % Eos % (Auto) 0.2 % Baso % (Auto) 0.1 % Immature Gran # (Auto) 0.01 (0.00-0.02) K/uL Neut # (Auto) 10.35 H (1.4-6.5) K/uL Lymph # (Auto) 1.59 (1.2-3.4) K/uL [place] # (Auto) 0.63 H (0.11-0.59) K/uL Eos # (Auto) 0.03 (0-0.5) K/uL Baso # (Auto) 0.01 (0-0.2) K/uL Sodium 141 (136-145) mmol/L Potassium 3.9 (3.5-5.1) mmol/L Chloride 111 H (98-107) mmol/L Carbon Dioxide 25 (21-32) mmol/L Anion Gap 5.0 (3-11) BUN 15 (7-18) mg/dl Creatinine 0.90 (0.6-1.2) mg/dl Est Cr Clr Drug Dosing 59.4 ml/min Est GFR ( Amer) 69.5 Est GFR (Non-Af Amer) 60.0 BUN/Creatinine Ratio 17.0 (10-20) Glucose 106 H (70-99) mg/dl Calcium 8.5 (8.5-10.1) mg/dl Total Bilirubin 1.2 H (0.2-1) mg/dl Direct Bilirubin 0.4 H D (0-0.2) mg/dl AST 72 H (15-37) U/L ALT 135 H (12-78) U/L Alkaline Phosphatase 100 (45-117) U/L Total Protein 5.7 L (6.4-8.2) gm/dl Albumin 2.7 L (3.4-5.0) gm/dl PG Care Time/CCT Total # of Minutes Spent Total Time Spent with Patient: Total time spent is greater than 50% in coordination of care (as documented) at patient's floor/unit and/or counseling patient: Coding Level of Care Code 47283 Subseq Hosp Care Lvl 2 Diagnoses Acute appendicitis K35.80 Benign essential hypertension I10 Hypothyroidism E03.9 Hyperlipidemia E78.5 Acid reflux disease K21.9 Restless legs syndrome G25.81 DVT prophylaxis Z29.9
[2019-12-06] MEDS: ROPINIROLE HCL 1 MG TABLET PO SCH (20:37)
[2019-12-06] MEDS: MAGNESIUM OXIDE 400 MG TAB PO SCH (20:37)
[2019-12-06] MEDS: ACETAMINOPHEN 325 MG TAB PO PRN (20:40)
[2019-12-07] MEDS: LEVOTHYROXINE SODIUM 125 MCG TABLET PO SCH (05:58)
[2019-12-07] MEDS: PIPERACILLIN/TAZOBACTAM 4.5 GM in DEXTROSE 5% 100 ML IV SCH ×3 (05:58→21:26)
[2019-12-07 07:31] LABS: Basophils # (auto) 0.02 K/uL (0-0.2); Basophils % (auto) 0.2 %; Eosinophils % (auto) 0.9 %; Hematocrit (blood only) 40.8 % (37-47); Hemoglobin 13.7 g/dL (12.0-16.0); Immature Granulocytes # (auto) 0.02 K/uL (0.00-0.02); Immature Granulocytes % (auto) 0.2 %; Lymphocytes # (auto) 1.39 K/uL (1.2-3.4); Lymphocytes % (auto) 12.9 %; Mean Corpuscular Hemoglobin 31.9 pg (25-34); Mean Corpuscular Hgb Conc 33.6 g/dL (32-36); Mean Corpuscular Volume 94.9 fL (80-100); Mean Platelet Volume 10.5 fL (7.4-10.4); Monocytes # (auto) 0.56 K/uL (0.11-0.59); Monocytes % (auto) 5.2 %; Neutrophils # (auto) 8.68 K/uL (1.4-6.5); Neutrophils % (auto) 80.6 %; Platelet Count 178 K/uL (130-400); RDW Coefficient of Variation 13.5 % (11.5-14.5); RDW Standard Deviation 46.5 fL (36.4-46.3); White Blood Count 10.77 K/uL (4.8-10.8)
[2019-12-07 08:07] LABS: Albumin Level 2.9 gm/dl (3.4-5.0); BUN Creatinine Ratio 16.2 (10-20); Bilirubin Direct 0.2 mg/dl (0-0.2); Calcium 8.4 mg/dl (8.5-10.1); Creatinine Clr Calc Pharmacy 73.5 ml/min; Est GFR (African American) 88.1; Magnesium 2.1 mg/dl (1.8-2.4); Potassium 3.8 mmol/L (3.5-5.1)
[2019-12-07 08:09] LABS: Bilirubin,Total 0.8 mg/dl (0.2-1); Thyroid Stimulating Hormone 1.46 uIu/ml (0.300-4.500); Total Protein 6.5 gm/dl (6.4-8.2)
--- NOTE | 2019-12-07 08:40 | Surgery Progress Note ---
Date of Service December 07, 2019 Assessment & Plan (1) S/P laparoscopic appendectomy: doing better today dr- serous getting stronger plan d/c tomorrow if progresses cont IV atbx likely d/c drain prior to d/c Results & Data Vital Signs (Past 12 Hours) Vital Signs Temp Pulse Resp BP BP Pulse Ox 12/07/19 07:23 36.5 C 83 18 146/84 H 94 12/07/19 04:00 36.9 C 68 18 142/83 H 93 12/07/19 00:09 36.8 C 93 H 18 157/77 H 92 PG Care Time/CCT Total # of Minutes Spent Total Time Spent with Patient: Total time spent is greater than 50% in coordination of care (as documented) at patient's floor/unit and/or counseling patient: Coding Level of Care Code None Diagnoses S/P laparoscopic appendectomy Z90.49
[2019-12-07] MEDS: PANTOprazole 40 MG TAB PO SCH (08:57)
[2019-12-07] MEDS: prednisoLONE acetate 1% OP SUSP 5 ML BTL OP SCH ×4 (08:57→20:27)
[2019-12-07] MEDS: HEPARIN SOD 5,000 UNIT/0.5 ML VIAL SQ SCH ×2 (08:57→20:26)
[2019-12-07] MEDS ORDERED: FUROSEMIDE 20 MG in SYRINGE 0 ML IV ONE (10:13)
[2019-12-07] MEDS: lisinopriL 5 MG TAB PO SCH (10:47)
[2019-12-07] MEDS: CALCIUM 600MG + VIT D 400 IU TAB PO SCH (13:07)
--- NOTE | 2019-12-07 15:17 | Hospitalist Progress Note ---
Date of Service December 07, 2019 Assessment & Plan (1) Acute appendicitis: This pt is an 79-year-old female with a history of HTN, hypothyroidism, GERD, RLS, here with acute gangrenous appendicitis with sepsis, now status post appendectomy emergently. Hospitalist service consulted for HTN and medical management. Acute appendicitis s/p laparoscopic appendectomy: With postoperative hypotension likely related to sepsis, POA. Blood pressures are now improved and actually now elevated after normal saline bolus and maintenance normal saline fluids Also with elevated LFTs likely also secondary to hypotension/shock liver-now improving/resolved Leukocytosis now resolved -Volume overloaded today--> give lasix 20mg IV x 1 -Continue regular diet -Follow LFTs in the morning-almost completely normalized -continue to hold atorvastatin until LFTs return to normal -Continue IV Zosyn -ISAAC drain in place -pathology from surgery no malignancy but with acute suppurative appendicitis -Follow cultures-no growth -restart lisinopril -Continue Tylenol, hydrocodone, and morphine as needed for pain, promethazine and Zofran as needed for nausea -bowel regimen for constipation (2) Benign essential hypertension: BP was significantly elevated on arrival due to pain, then had hypotension postoperatively secondary to sepsis, POA Blood pressures improved with holding lisinopril and giving IV fluids Now elevated BPs -restart lisinopril -give IV lasix x 1 -check BMP in AM (3) Hypothyroidism: -check TSH - continue home levothyroxine 125 mcg daily. (4) Hyperlipidemia: Holding statin as above for elevated LFTs (5) Acid reflux disease: Continue PPI daily (6) Restless legs syndrome: Continue ropinirole at bedtime (7) DVT prophylaxis: SCDs, heparin SQ Dispo: continue dstay but likely to dc tomorrow as per Surgery Will continue to follow for volume overload Admission and Anticipated Discharge Date Admission Date: December 04, 2019 Subjective Pt notes swollen legs and is a little SOB with exertion with walking halls today. Is eating and dirnking, no BM yet but passing a lot of flatus. No N/V. Denies CP or OSB Review of Systems Review of Systems: All systems reviewed & are unremarkable except as noted in HPI & below Physical Exam Constitutional: WD/WN, vitals as above Eyes: + anicteric sclerae ENMT: external ear and nose normal, oropharynx normal Neck: trachea midline, no thyromegaly Respiratory: normal respiratory effort, lungs clear to auscultation Cardiovascular: Rate/Rhythm: regular rate and regular rhythm Extremities: + edema (1+ edema legs bilat) Chest (Breasts): Chest: normal inspection of chest Gastrointestinal (Abdomen): Inspection/Auscultation: + abdomen abnormal to inspection (incisions with dressings in place, ISAAC drain with serosang drainage) Percussion/Palpation: + abdomen tender (mild at incision sites without guarding) and abdomen soft; no guarding Musculoskeletal: Extremities: no cyanosis and no clubbing Skin: no rashes, warm and dry Neurologic: moves all extremities and awake; no focal motor deficits Psychiatric: A+Ox3, euthymic affect Lymphatic: no lymphedema Results & Data Results & Data ([facility]) Vital Signs (Past 12 Hours) Vital Signs Temp Pulse Resp BP BP Pulse Ox 12/07/19 07:23 36.5 C 83 18 146/84 H 94 12/07/19 04:00 36.9 C 68 18 142/83 H 93 Laboratory Results 12/07/19 12/07/19 Range/Units 06:45 06:45 WBC 10.77 (4.8-10.8) K/uL RBC 4.30 (4.2-5.4) M/uL Hgb 13.7 (12.0-16.0) g/dL Hct 40.8 (37-47) % MCV 94.9 (80-100) fL MCH 31.9 (25-34) pg MCHC 33.6 (32-36) g/dL RDW Std Deviation 46.5 H (36.4-46.3) fL RDW Coeff of Fabienne 13.5 (11.5-14.5) % Plt Count 178 (130-400) K/uL MPV 10.5 H (7.4-10.4) fL Immature Gran % (Auto) 0.2 % Neut % (Auto) 80.6 % Lymph % (Auto) 12.9 % [place] % (Auto) 5.2 % Eos % (Auto) 0.9 % Baso % (Auto) 0.2 % Immature Gran # (Auto) 0.02 (0.00-0.02) K/uL Neut # (Auto) 8.68 H (1.4-6.5) K/uL Lymph # (Auto) 1.39 (1.2-3.4) K/uL [place] # (Auto) 0.56 (0.11-0.59) K/uL Eos # (Auto) 0.10 (0-0.5) K/uL Baso # (Auto) 0.02 (0-0.2) K/uL Sodium 140 (136-145) mmol/L Potassium 3.8 (3.5-5.1) mmol/L Chloride 109 H (98-107) mmol/L Carbon Dioxide 24 (21-32) mmol/L Anion Gap 7.0 (3-11) BUN 12 (7-18) mg/dl Creatinine 0.74 (0.6-1.2) mg/dl Est Cr Clr Drug Dosing 73.5 ml/min Est GFR ( Amer) 88.1 Est GFR (Non-Af Amer) 76.0 BUN/Creatinine Ratio 16.2 (10-20) Glucose 101 H (70-99) mg/dl Calcium 8.4 L (8.5-10.1) mg/dl Magnesium 2.1 (1.8-2.4) mg/dl Total Bilirubin 0.8 (0.2-1) mg/dl Direct Bilirubin 0.2 (0-0.2) mg/dl AST 32 (15-37) U/L ALT 95 H (12-78) U/L Alkaline Phosphatase 100 (45-117) U/L Total Protein 6.5 (6.4-8.2) gm/dl Albumin 2.9 L (3.4-5.0) gm/dl TSH 1.460 (0.300-4.500) uIu/ml PG Care Time/CCT Total # of Minutes Spent Total Time Spent with Patient: Total time spent is greater than 50% in coordination of care (as documented) at patient's floor/unit and/or counseling patient: Coding Level of Care Code 14720 Subseq Hosp Care Lvl 2 Diagnoses Acute appendicitis K35.80 Benign essential hypertension I10 Hypothyroidism E03.9 Hyperlipidemia E78.5 Acid reflux disease K21.9 Restless legs syndrome G25.81 DVT prophylaxis Z29.9
[2019-12-07] MEDS: ACETAMINOPHEN 325 MG TAB PO PRN ×2 (17:05→21:26)
[2019-12-07] MEDS: MAGNESIUM OXIDE 400 MG TAB PO SCH (20:27)
[2019-12-07] MEDS: ROPINIROLE HCL 1 MG TABLET PO SCH (20:28)
[2019-12-08] MEDS: LEVOTHYROXINE SODIUM 125 MCG TABLET PO SCH (05:47)
[2019-12-08] MEDS: PIPERACILLIN/TAZOBACTAM 4.5 GM in DEXTROSE 5% 100 ML IV SCH (05:47)
[2019-12-08 05:55] LABS: Basophils # (auto) 0.02 K/uL (0-0.2); Basophils % (auto) 0.3 %; Eosinophils # (auto) 0.18 K/uL (0-0.5); Eosinophils % (auto) 2.3 %; Hematocrit (blood only) 40.4 % (37-47); Hemoglobin 13.4 g/dL (12.0-16.0); Immature Granulocytes # (auto) 0.02 K/uL (0.00-0.02); Immature Granulocytes % (auto) 0.3 %; Lymphocytes # (auto) 1.84 K/uL (1.2-3.4); Lymphocytes % (auto) 23.4 %; Mean Corpuscular Hemoglobin 31.1 pg (25-34); Mean Corpuscular Hgb Conc 33.2 g/dL (32-36); Mean Corpuscular Volume 93.7 fL (80-100); Mean Platelet Volume 10.1 fL (7.4-10.4); Monocytes # (auto) 0.56 K/uL (0.11-0.59); Monocytes % (auto) 7.1 %; Neutrophils # (auto) 5.25 K/uL (1.4-6.5); Neutrophils % (auto) 66.6 %; Platelet Count 187 K/uL (130-400); RDW Coefficient of Variation 13.2 % (11.5-14.5); RDW Standard Deviation 45.9 fL (36.4-46.3); Red Blood Count 4.31 M/uL (4.2-5.4); White Blood Count 7.87 K/uL (4.8-10.8)
[2019-12-08 06:26] LABS: Albumin Level 2.5 gm/dl (3.4-5.0); BUN Creatinine Ratio 15.3 (10-20); Calcium 8.7 mg/dl (8.5-10.1); Creatinine Clr Calc Pharmacy 70.6 ml/min; Est GFR (African American) 83.9; Est GFR (Non-African American) 72.4; Potassium 3.7 mmol/L (3.5-5.1)
[2019-12-08 06:28] LABS: Albumin Globulin Ratio 0.8 (0.9-2); Bilirubin,Total 0.5 mg/dl (0.2-1); Globulin 3.3 gm/dl (2.5-4.0); Total Protein 5.8 gm/dl (6.4-8.2)
[2019-12-08] MEDS: ATORVASTATIN 10 MG TAB PO SCH ×2 (08:07)
[2019-12-08] MEDS: prednisoLONE acetate 1% OP SUSP 5 ML BTL OP SCH (08:08)
[2019-12-08] MEDS: lisinopriL 5 MG TAB PO SCH (08:08)
[2019-12-08] MEDS: HEPARIN SOD 5,000 UNIT/0.5 ML VIAL SQ SCH (08:09)
[2019-12-08] MEDS: PANTOprazole 40 MG TAB PO SCH (08:09)
--- NOTE | 2019-12-08 09:35 | Discharge Summary ---
Date of Service December 08, 2019 Admission HPI Per Admitting Provider 79 year old female was in her usual state of health until she began experiencing RLQ abdominal pain about 24 hours ago. This occurred while she was gardening so she though she pulled a muscle. The pain initially improved without intervention, but over the ensuing 12-24 hours the pain recurred. She noted the pain is worse with movement and was worse in the car ride to the hospital. She has had fevers and chills as well as loss of apatite, but no N/V. In the ED Ct scan of the abdomen showed findings concerning for acute appendicitis. Her WBC was 16.8 and she was afebrile. At the time of my exam she was in no distress. Admission Exam Per Admitting Provider Constitutional: well developed and well nourished; no acute distress Eyes: no conjunctival abnormality ENMT: Ears: no hearing impairment Neck: trachea midline Respiratory: normal respiratory effort, lungs clear to auscultation Cardiovascular: Rate/Rhythm: regular rate and regular rhythm Vessels: radial pulses present Gastrointestinal (Abdomen): soft and non-distended. Pain with palpation in RUL. Musculoskeletal: no calf pain Skin: no rashes, warm and dry Neurologic: moves all extremities Psychiatric: A+Ox3, euthymic affect Principal Diagnosis acute appendicitis Discharge Exam Constitutional cooperative; no acute distress and not ill appearing Neck normal visual inspection Respiratory normal respiratory effort and able to speak in complete sentences; no respiratory distress, no labored breathing, no retractions, no cough and no audible wheezes Auscultation: lungs clear to auscultation bilaterally; no crackles, no rales, no rhonchi and no wheezes Cardiovascular Rate/Rhythm: regular rate and regular rhythm Heart Sounds: normal S1 and normal S2; no gallop, no murmur and no cardiac rub Vessels: posterior tibial pulses present Extremities: no pedal edema and no edema Gastrointestinal (Abdomen) Inspection/Auscultation: abdomen normal to inspection and normal bowel sounds; abdomen not distended Percussion/Palpation: abdomen soft; abdomen nontender, no guarding, abdomen not rigid and no abdominal mass drain removed, incisions healing well, covered with dressings and not seeping Discharge Data Allergies Allergy/AdvReac Type Severity Reaction Status Date / Time esomeprazole Allergy Intermediate ITCHY RASH Verified 12/04/19 18:23 dog dander Allergy Mild CONGESTION Verified 12/04/19 18:23 house dust Allergy Mild CONGESTION Verified 12/04/19 18:23 mold Allergy Mild CONGESTION Verified 12/04/19 18:23 mollusks Allergy Mild CONGESTION Verified 12/04/19 18:23 Consultations 12/04/19 19:36 ED Decision to Admit Stat 12/04/19 20:47 Consult Hospitalist Stat Procedures Performed Operation Date: 12/04/19 21:30 Actual Procedures p Laparoscopic Appendectomy - Terrance Mckeon MD, FACS Ordered Studies 12/04/19 18:04 CT abd pelvis IV con only Stat Hospital Course (1) Acute appendicitis: 79 yo F PMHx HTN, GERD, HLD, hypothyroidism admitted for acute appendicitis. Hospitalist service consulted for HTN and medical management. 1) Acute Appendicitis s/p laproscopic appendectomy 12/03: post-op course complicated by hypotension and concern for sepsis. Treated with zosyn and fully recovered on day of discharge. Tolerating normal diet well, no issues with N/V/BM. Pain well controlled. Follow up with surgery as needed. 2) HTN: blood pressure medications temporarily held in setting of hypotension. Restarted at discharge. All other medical conditions managed per home regimen. (2) Benign essential hypertension: (3) Hypothyroidism: (4) Hyperlipidemia: (5) Acid reflux disease: Total Time Total Time Spent Total Time Spent (In Minutes): Discharge Plan Discharge Items Patient Disposition: Home - Self-Care Reason For Visit: APPENDICITIS Discharge Diagnosis: laparoscopic appendectomy Activity: Per Instructions section Activity Comment: light activity for 4 weeks Lifting: No more than 10 pounds Bathing Comment: may shower, no soaking in tubs Exercise/Sports: Wait until after follow-up appointment Exercise Comment: light activity for 4 weeks Driving/Machine Use: Resume 3 days after discharge Non-emergency contact: Surgeon Call non-emergency contact if: you have any medication questions, your symptoms worsen, your pain is concerning for you, you have a fever, your temperature is above 101.5, your wound has increased redness, your wound has increased drainage and your wound pain has increased Follow-up/Referrals: Terrance Mckeon MD, FACS [Physician] - Akila Monique MD [Primary Care Provider] - Diet: Regular Addtl Attending Provider Instructions: SPECIAL CARE INSTRUCTIONS: * Cover incisions and change daily for comfort/drainage. * May use ibuprofen for pain as tolerated. * Expect some swelling and bruising. Call your doctor if: * Temperature above 101 degrees * Pain not relieved by pain medicine ordered * There is increased drainage or redness from any incision * You have any unanswered questions or concerns [phone]. FOLLOW UP VISIT: If not already scheduled, please call the office for a follow-up visit. OFFICE PHONE NUMBER: Dr. Mckeon Office for next week- checkup Pending Studies at Discharge: Yes Studies:: surgical pathology Stand-Alone [facility], Smoking Cessation Medications and DC Order Prescriptions: New amoxicillin-pot clavulanate [Augmentin] 875-125 mg tablet 1 tab PO BID Qty: 10 RF: 0 Continued ropinirole 1 mg tablet 1 mg PO QPM Qty: 90 RF: 3 fluconazole [Diflucan] 150 mg tablet 150 mg PO Q3D Qty: 2 RF: 0 pantoprazole [Protonix] 40 mg tablet,delayed release (DR/EC) 40 mg PO QAM Qty: 90 RF: 1 levothyroxine [Synthroid] 125 mcg tablet 125 mcg PO QAM Qty: 90 RF: 1 lisinopril [Zestril] 5 mg tablet 5 mg PO DAILY Qty: 90 RF: 1 docusate sodium 100 mg tablet 100 mg PO PM RF: 0 magnesium oxide 500 mg capsule 750 mg PO PM RF: 0 prednisolone acetate 1 % drops,suspension 1 drops OP QID RF: 0 cholecalciferol (vitamin D3) 2,000 unit tablet 2,000 units PO QAM RF: 0 multivitamin [Multiple Vitamins] tablet 1 tab PO QAM RF: 0 Caltrate 600 plus D 600 mg (1,500 mg)-800 unit Tablet,Chewable 1 tab PO 1200 RF: 0 brimonidine [Alphagan P] 0.15 % drops 1 drp ophthalmic (eye) DIRECTED RF: 0 Rantidine Tabs 150 mg PO HS RF: 0 atorvastatin [Lipitor] 10 mg tablet 10 mg PO PM RF: 0 montelukast 10 mg tablet 10 mg PO QAM RF: 0 Discharge Orders: Discharge Order (Routine); Ordered 12/08/19 Ordered By: Terrance Mckeon Admission Data Admit Date/Time: 12/04/19 22:37 Attending Provider: Terrance Mckeon Admit Provider: Terrance Mckeon Primary Care Provider: Akila Monique Other Providers: Terrance Mckeon ; Jensen Rocha ; Baldev Storm ; Radha Orellana ; Chary Loeps ; Sebastian Moreno ; Terrance Hunter ; Bethany Lui ; Rufus Hernandez ; Clifton Campbell ; Bryan Hooper ; Karuna Kim ; Bryanna Matos ; Di Garcia ; Latha Horowitz ; Jeremiah Marroquin ; Libia Laura ; Malorie Kramer ; Tomi Glynn ; Everton Paulson ; Robles Nath ; Luh Morales ; Chino Clinton ; Jeff Cha ; Sebastian Sevilla ; Meghann Tolliver ; Simone Lopez ; Danitza Del Rosario ; Marcella Del Rosario ; Mirza Ag ; Jovanny Beltrán ; Jania Ortiz ; Vance Santos ; Ayaz Klein ; Alysa Simmons ; Morales Haile Other Interventions: Discharge Summary Assessment (RN) Last Done: 12/08/19 07:56 DC Date/Time DO NOT enter until pt leaves facility: 12/08/19 10:33 Supervising Physician Co-Signing Physician Notes Patient seen and examined independently of PGY-1 Dr. Ayon. Agree with history, exam findings and hospital course as described by Dr. Ayon. In brief, Ms. Collier is an 79 year old female admitted with appendicitis, post operative course complicated by hypotension and concern for sepsis. Received zosyn and will be discharged on Augmentin. Other chronic issues were stable and home medications resumed prior to discha rge. Resident Activity Tracking Resident Involvement: Resident Care Provided Care Provided: Adult [facility]
== END 2019-12-08 10:33 | disposition home or self-care (01) | DRG 853 ==
LOC: ED 17:38 → OR 21:32 → 2N 22:37